=== PATIENT | female | born 1985 | race Caucasian/White ===

== ENCOUNTER 2016-10-11 08:41 | Emergency (ER) | payer MEDICAID ==
[~2016-10-11] VITALS: Ht 172.7 cm; Wt 131.5 kg
[~2016-10-11 08:41] MED LIST: ATIVAN2 MG PO; BENADRYL 50MG C50 MG PO; BENTYL10 MG PO; BIRTH CONTROL PO; BUPROPION HCL75 M1 PO; CIPRO 500MG TA500 MG PO; CITALOPRAM HYDR20 MG PO; CORTISPORIN (GE10 M1 OT; CYCLOBENZ5 MG PO; CYCLOBENZAPRINE10 M1 PO; EC NAPROSYN375 MG PO; FLEXERIL10 MG PO; FLONASE 50 MCG16 GM; GABAPENTIN100 MG PO; HYDROXYZINE PAM25 MG PO; IBUPROFEN600 MG; IRON TABLETS325 M1 PO; IRON TABLETS325 MG PO; KEFLEX 500MG.500 MG PO; LORTAB 5/3251 TAB PO; MACROBID 100MG100 MG PO; MEDROL 4MG. DOSE4 MG PO; METHYLDOPA250 MG PO; MOTRIN400 MG PO; MOTRIN600 M1 PO; PEPCID40 MG PO; PERCOCET 325 MG1 TA4 PO; PERCOCET 5/3251 EACH PO; PHENERGAN 25MG.25 M1 PO; PHENTERMINE H37.5 M1 PO; PREDNISONE 10MG10 MG PO; PRENATAL PLUS1 TA1; PRENATAL PLUS1 TA1 PO; PYRIDIUM 200MG200 MG PO; ROBAXIN-750750 MG PO; SPRINTEC 35 MCG1 TAB PO; TORADOL10 M2 PO; TORADOL10 MG PO; TRAMADOL 50MG T50 MG PO; TRAMADOL50 M1 PO; TRAZODONE50 MG PO; TYLENOL 325MG325 MG PO; TYLENOL ES500 M1 PO; TYLENOL PM 5001 CAP PO; TYLENOL PM1 CAP PO; ULTRAM50 MG PO; VENLAFAXINE50 MG PO; VISTARIL25 MG PO; ZESTRIL10 MG NG; ZITHROMAX Z PA250 MG PO; ZOFRAN ODT4 MG PO; ZOFRAN ODT8 M1 PO; ZOFRAN ODT8 MG PO; ZOLOFT 50MG TAB50 MG PO; ZOLOFT100 MG PO; ZYRTEC ALLERGY10 MG PO
--- NOTE | 2016-10-11 08:59 | Emergency Room Report ---
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 N Clinical Suspician of Infection? N Mental Status: 1 - Regular (Normal Baseline) Sepsis Risk:Low Sepsis Risk Have you (or family members/close friends) recently traveled outside the [place]? N If Yes, where/when: Have you had exposure to infectious disease within the past month? N TB? Other? Specify: Patient states she fell several days ago and hurt her low back and her RIGHT hip and then she went to see a Fracture yesterday and got "adjusted" she states that today she is having worse pain in her low back and her RIGHT hip area moderate and achy worse with movement and radiates from her low back into her hip area on the RIGHT. No complain of any head trauma or loss of consciousness she states she tripped and fell ALLERGIES Coded Allergies: Penicillins (02/05/16) SHELLFISH (FOOD) (I-HIVES 02/05/16) Sulfa (Sulfonamide Antibiotics) (02/05/16) aspirin (02/05/16) labetalol (02/05/16) naproxen (02/05/16) triamcinolone (02/05/16) Home Medications Active Scripts Cyclobenzaprine Hcl (Flexeril) 10 MG PO BID #20 TAB Prov: 08/21/16 Dicyclomine Hcl (Bentyl 10MG) 10 MG PO Q6HP PRN abdominal cramps #30 CAP Prov: 09/01/16 Ondansetron (Zofran 4MG Odt) 4 MG PO Q6HP PRN NAUSEA AND VOMITING #10 ODT Prov: 09/02/16 HYDROCODONE/ACETAMINOPHEN (Lortab 5-325 MG Tablet) 1 TAB PO TIDP PRN BREAKTHROUGH MOD TO SEV PAIN #10 TAB Prov: 09/02/16 Famotidine (Pepcid) 40 MG PO DAILY #20 TAB Prov: 08/09/16 Lisinopril (Zestril) 10 MG NG DAILY #30 TAB Prov: 11/29/15 Fluticasone Propionate (Flonase 50 Mcg Nasal [place]) 2 SPRAY NA DAILY #1 BOT Prov: 09/10/16 Naproxen (EC-Naprosyn) 375 MG PO BID #14 ECT Prov: 09/12/16 Cyclobenzaprine Hcl (Cyclobenzaprine) 5 MG PO QHSP PRN muscle spasm #5 TAB Prov: 09/12/16 Reported Medications Hydroxyzine Pamoate 25 MG PO QHS #90 NORGESTIMATE-ETHINYL ESTRADIOL (Sprintec 28 Day Tablet) 1 TAB PO QHS Gabapentin (Gabapentin 100MG) 100 MG PO QHS #30 Sertraline Hcl (Zoloft 50MG) 100 MG PO DAILY Trazodone Hcl (Trazodone HCl) 300 MG PO NIGHTLY #8 History Medical History General CAD? No Angina: No SC: No Hypertension? Yes Hyperlipidemia? No CHF? No DVT? No PE? No COPD? No Asthma? Yes Anemia? No GERD? No Gastric ulcers? No GI Bleed? No Hernia? No Thyroid Problems? No Hypothyroidism? No CVA? No Seizures? No Diabetes? No Insulin Dependent: No Insulin Pump: No Home FSBS? No Renal Insuffiency? No End Stage Renal Disease? No UTI? Yes Stones? Yes BPH? No GB Disease: No Nephritic Syndrome? No Asplenia? No Hepatitis? No Sickle Cell Disease? No Arthritis? Yes Migraines? No Cataracts? No Glaucoma? No MRSA? No HIV? No TB? No Anxiety? Yes Depression? Yes Cancer? No More? 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 Eyes: conjunctiva/corneas clear ENT: Mucous membranes moist. Neck: No jugular venous distention. Extremities: no edema Musculoskeletal: low back tenderness RIGHT hip tenderness Skin: No rashes or lesions to exposed skin. Neurologic: Alert. No gross focal deficits Psychiatric: Normal affect (Kiya DERAS, Sukhdeep) General Appearance normal appearance Respiratory Status No: respiratory distress. Cardiovascular no JVD Neurologic alert, no urinary or bowel incontinence Medical Decision Making LABS/Meds/Orders Pt receiving controlled substance in ED? Yes Results/Orders Orders Procedure Date/time Status HIP RT 2-3V W/PELVIS IF PERFOR 10/11 899 Active URINALYSIS/COMPLETE 10/11 899 Active URINE 10/11 899 Active XRAY/CT/US XRAY/CT/US XRAY hip, L-spine XR interpretation by reviewed by me Xray Results no fracture seen, no fracture in hip , no fracture in l spine Departure Departure Time of Disposition 0934 Disposition DC Home or Self Care(routine) Clinical Impression Primary Impression: Lumbar sprain Qualifiers: Encounter type: initial encounter Qualified Code: S33.5XXA - Sprain of ligaments of lumbar spine, initial encounter Condition STABLE Referrals Quinton DERAS,Bert Moon (Family) Patient Instructions CONTROLLED SUBSTANCE-[facility], Low Back Pain Discharge Counseling Counseled pt/family regarding diagnosis, test results, R/B of controlled subst. Prescriptions Current Visit Scripts Acetaminophen/Hydrocodone Bi (Vicodin) 1 TAB PO Q6HP PRN BACK PAIN #10 TAB ED Critical Care Critical Care No at 0942
--- NOTE | 2016-10-11 09:36 | RADIOLOGY REPORT PS360 ---
EXAM: LUMBAR SPINE 5 VIEWS HISTORY: Back pain following injury fall back pain ORDERING PHYSICIAN: Sukhdeep Huertas MD PATIENT AGE: 31 years COMPARISON: None FINDINGS: Normal alignment. No fracture or dislocation. No lytic or blastic change. No significant degenerative change. The disc spaces are preserved. IMPRESSION: No acute finding, negative lumbar spine
[2016-10-11] MEDS ORDERED: VICODIN 5/500 T1 TAB PO (09:40)
[2016-10-11 09:51] VITALS: BP 112/45
--- NOTE | 2016-10-11 09:59 | RADIOLOGY REPORT PS360 ---
HIP RT 2-3V W/PELVIS IF PERFOR HISTORY: Extreme hip pain ORDERING PHYSICIAN: Sukhdeep Huertas MD PATIENT AGE: 31 years COMPARISON: CT scan of 09/02/2016 FINDINGS: No fracture or dislocation. No lytic changes evident. There is sclerosis of the symphysis pubis with some minimal subcortical lucencies of the symphysis consistent with osteitis pubis. The right hip has an unremarkable appearance. IMPRESSION: 1. Negative right hip. 2. Osteitis pubis
== END 2016-10-11 09:52 | disposition home or self-care (01) ==
LOC: ER 08:41
DX: S33.5XXA Sprain of ligaments of lumbar spine, initial encounter (principal); I10 Essential (primary) hypertension

== ENCOUNTER 2017-03-18 14:43 | Emergency (ER) | payer MEDICAID ==
[~2017-03-18] VITALS: Ht 172.7 cm; Wt 97.5 kg
--- NOTE | 2017-03-18 15:20 | Urgent Treatment Center Report ---
History of Present Issue Date/Time Seen by Provider 03/18/17 1520 Visit Reason Pt arrived:Walked Presenting Problem:BILATERAL EAR PAIN AND CONGESTION Location if Accident: Onset of symptoms date/time:/ or onset unknown for:MEDICAL HX UNKNOWN Have you (or family members/close friends) recently traveled outside the [place]? N If Yes, where/when: Have you had exposure to infectious disease within the past month? TB? Other? Specify: Patient state that she has been having bilateral ear pain and cough and congestion State that she has not been feeling well States that she feels like she has pressure behind her ears and in her sinuses states that she was blowing clear mucous out of her sinuses and now it is yellowish green ALLERGIES Coded Allergies: Penicillins (02/05/16) SHELLFISH (FOOD) (I-HIVES 02/05/16) Sulfa (Sulfonamide Antibiotics) (02/05/16) aspirin (02/05/16) iodine (12/19/16) labetalol (02/05/16) triamcinolone (02/05/16) Home Medications Active Scripts NITROFURANTOIN MONOHYD/M-CRYST (Macrobid 100 MG Capsule) 100 MG PO BID #14 CAP Prov: 12/09/16 Famotidine (Pepcid) 40 MG PO DAILY #20 TAB Prov: 08/09/16 Lisinopril (Zestril) 10 MG NG DAILY #30 TAB Prov: 11/29/15 Fluticasone Propionate (Flonase 50 Mcg Nasal [place]) 2 SPRAY NA DAILY #1 BOT Prov: 09/10/16 Reported Medications Hydroxyzine Pamoate 25 MG PO QHS #90 NORGESTIMATE-ETHINYL ESTRADIOL (Sprintec 28 Day Tablet) 1 TAB PO QHS Gabapentin (Gabapentin 100MG) 100 MG PO QHS #30 Bisoprolol Fumarate 10 MG PO QHS #30 Sertraline Hcl (Zoloft 50MG) 100 MG PO DAILY Trazodone Hcl (Trazodone HCl) 300 MG PO NIGHTLY #8 BUPROPION HCL SR (Wellbutrin SR 100MG) 100 MG PO BID History Medical History General CAD? No Angina: No PA: No Hypertension? Yes Hyperlipidemia? No CHF? No DVT? No PE? No COPD? No Asthma? Yes Anemia? No GERD? No Gastric ulcers? No GI Bleed? No Hernia? No Thyroid Problems? No Hypothyroidism? No CVA? No Seizures? No Diabetes? No Insulin Dependent: No Insulin Pump: No Home FSBS? No Renal Insuffiency? No UTI? Yes Stones? Yes BPH? No GB Disease: No Nephritic Syndrome? No Asplenia? No Hepatitis? No Sickle Cell Disease? No Arthritis? Yes Migraines? No Cataracts? No Glaucoma? No MRSA? No HIV? No TB? No Anxiety? Yes Depression? Yes Cancer? No More? 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 Respiratory cough Physical Exam Vital Signs Vital Signs Date Time Temp Pulse Resp B/P Pulse O2 O2 Flow FiO2 Ox Delivery Rate 03/18 1533 98.3 64 18 99/66 95 03/18 1458 98.3 64 18 99/66 95 General Appearance normal appearance, WD/WN, no apparent distress Ear, Nose, Throat sinus pain/drainage, nasal congestion, throat red, irritated, drainage noted, tenderness noted maxillary sinsues Respiratory Status Yes: trachea midline, chest symmetrical, non tender chest. No: respiratory distress. Cardiovascular normal exam, regular rate/rhythm, no peripheral edema, no gallop Neurologic alert, continuous improvement analyst II-XII nml as tested, normal exam, no motor/sensory deficits, oriented x 3 Medical Decision Making LABS/Meds/Orders Pt receiving controlled substance in ED? No Departure Departure Time of Disposition 1553 Disposition DC Home or Self Care(routine) Clinical Impression Primary Impression: Upper respiratory infection Qualifiers: URI type: unspecified URI Qualified Code: J06.9 - Acute upper respiratory infection, unspecified Condition STABLE Patient Instructions Cough, DI for Nasal Congestion, Sore Throat Additional Instructions * Monitor Temp. Tylenol and/or Ibuprofen as needed. ER if fever is no less than 101 despite alternating Tylenol and Ibuprofen * Encourage fluids, water, Gatorade, powerade, pedialyte if /toddler/or child * Warm salt water gargles for throat irritation *Warm fluids *Sore throat lozenges *Sleep elevated Discharge Counseling Counseled pt/family regarding diagnosis, medications/RX, home care, follow up needs Prescriptions Current Visit Scripts Azithromycin (Zithromycin (Z-DAYNA) 250MG Tab) 250 MG PO DAILY #6 TAB TAKE TWO (2) TABLETS ON DAY 1, THEN ONE (1) TABLET DAY #2 THRU #5 D-METHORPHAN HB/P-EPD HCL/BPM (Bromfed Dm Cough Syrup) 10 ML PO Q4HP PRN cough #120 SYR at 1553
[2017-03-18 15:33] VITALS: BP 99/66
== END 2017-03-18 15:58 | disposition home or self-care (01) ==
LOC: UTC 14:43
DX: J06.9 Acute upper respiratory infection, unspecified (principal); F32.9 Major depressive disorder, single episode, unspecified; F41.9 Anxiety disorder, unspecified; M19.90 Unspecified osteoarthritis, unspecified site; I10 Essential (primary) hypertension; Z79.3 Long term (current) use of hormonal contraceptives; Z79.899 Other long term (current) drug therapy

== ENCOUNTER → 2017-05-12 | Emergency (ER) | payer MEDICAID ==
[~2017-05-12] VITALS: Ht 172.7 cm; Wt 133.8 kg
[~2017-05-12] MED LIST changes: +BISOPROLOL FUMA10 MG PO; +BROMFED DM COU118 ML PO; +MACROBID100 M3 PO; +OMNICEF 300 MG300 MG PO; +PERCOGESIC1 TAB PO; +VICODIN 5/500 T1 TAB PO; +WELLBUTRIN SR100 MG PO; +ZANAFLEX4 MG NG
--- OUTSIDE RECORDS SUMMARY | 2017-05-12 15:48 | External Medical Summary Rpt | CCD ---
Author Author , ASIM DAILEY Address Unknown Phone [email or web address] Care Team Providers Care Conduit Cleaner Name Role Phone Siddhartha Luz III, MD, Siddhartha Wild III, MD Purpose Continuity of Care Document - 10-01-2011 through 2016 Problems Code Diagnosis DOS Provider Status F41.9 ANXIETY 11-07-2016 DISORDER, UNSPECIFIED G89.29 OTHER 11-07-2016 CHRONIC PAIN I10 ESSENTIAL 11-07-2016 (PRIMARY) HYPERTENS N M54.5 LOW BACK 11-07-2016 PAIN Z88.0 ALLERGY 11-07-2016 STATUS TO PENICILLIN Z88.2 ALLERGY 11-07-2016 STATUS TO SULFONAMIDE S STATUS Z88.6 ALLERGY 11-07-2016 STATUS TO ANALGESIC AGENT STATUS Z88.8 ALLERGY 11-07-2016 STATUS TO OTHER DRUGS, MEDICAMENTS AND BIOLOGICAL SUBSTANCES STATUS Z91.013 ALLERGY TO 11-07-2016 [facility] 401.9 401.9 [facility]-13-2013 [facility] N NOS Hospital 493.90 493.90 01-13-2013 [place] ASTHMA, [facility] UNSPECIFIED Hospital 787.01 787.01 01-13-2013 [place] NAUSEA WITH [facility] VOMITING Hospital 787.91 787.91 01-13-2013 [place] DIARRHEA [facility] 789.00 789.00 01-13-2013 [place] ABDOMINAL [facility] PAIN, Hospital UNSPECIFIED SITE V58.69 V58.69 OTH 01-13-2013 [facility] ENT USE Hospital I88.0 NONSPECIFIC MESENTERIC LYMPHADENIT IS K52.9 NONINFECTIV E GASTROENTER ITIS AND COLITIS, UNSPECIFIED R10.32 LEFT LOWER QUADRANT PAIN R10.9 UNSPECIFIED ABDOMINAL PAIN S29.019A STRAIN OF MUSCLE AND TENDON OF UNSP WALL OF THORAX, INIT S33.5XXA SPRAIN OF LIGAMENTS OF LUMBAR SPINE, INITIAL ENCOUNTER S39.012A STRAIN OF MUSCLE, FASCIA AND TENDON OF LOWER BACK, INIT Allergies, Adverse Reactions, Alerts Type Drug Allergy Food Allergy Adverse Reaction to Substance Substance Reaction Severity Penicillin Unknown Unknown SULFA (sulfonamide) Unknown Unknown Aspirin Unknown Unknown Naproxen Unknown Unknown Penicillin V Unknown Unknown Trimethoprim Unknown Unknown Sulfamethoxazole Unknown Unknown SHELLFISH (FOOD) I-HIVES Unknown Medications Na ND Rx Da Fi Fi Am Da Di Ph RX Ph St me C No te ll ll ou ys ag ar # ys at rm s nt no ma ic us Or Da si cy ia de te s n re d SO 00 07 0 No DI 40 -1 UM 97 7- Lo 98 20 ng CH 30 13 er LO 9 RI Ac DE ti ve 0. 9% SO MAXIMINO TI ON Sa 63 07 0 No li 80 -1 ne 70 7- Lo 10 20 ng Fl 07 13 er us 5 h Ac 10 ti ML ve Sy ri ng e ON 00 07 0 No DA 64 -1 NS 16 7- Lo ET 08 20 ng RO 02 13 er N 5 HC Ac L ti 4 ve MG /2 ML AL [place] 00 07 0 No OM 64 -1 ET 11 7- Lo ADAME 49 20 ng ZI 53 13 er NE 5 Ac 25 ti ve MG /M L AM PU L AC 51 07 0 No ET 07 -1 AM 90 2- Lo IN 16 20 ng OP 19 13 er HE 9H N Ac W/ ti CO ve DE IN E #3 TA K Vital Signs 01-13-2013 15:46 Name Value Interpretat Reference Comment ion Range BP 57 mm[Hg] Diastolic BP Systolic 115 mm[Hg] Heart 69 /min Rate/Pulse O2% 98 % Respiratory 16 /min Rate 01-13-2013 12:31 Name Value Interpretat Reference Comment ion Range Body 98.5 [degF] Temperature BP 101 mm[Hg] Diastolic BP Systolic 138 mm[Hg] Heart 75 /min Rate/Pulse O2% 98 % Respiratory 20 /min Rate Weight 0 [oz_av] Measured Weight 97.524 kg Measured 01-08-2013 20:44 Name Value Interpretat Reference Comment ion Range BP 75 mm[Hg] Diastolic BP Systolic 142 mm[Hg] Heart 72 /min Rate/Pulse O2% 97 % Respiratory 20 /min Rate 01-08-2013 20:00 Name Value Interpretat Reference Comment ion Range BP 79 mm[Hg] Diastolic BP Systolic 137 mm[Hg] Heart 84 /min Rate/Pulse O2% 97 % Respiratory 20 /min Rate Results Labs Lab Lab Date Result Refere Interp Status Commen Order Detail nces retati t Range on Urinalysis macro (dipstick) panel in Urine (12-09-2016 10:57) Appeara Cloudy CLEAR complet nce of 017 ed Urine 10:57 Bilirub NEGATIV NEG complet in 017 E ed [Presen 10:57 ce] in Urine by Test strip Erythro TRACE NEG Abnorma complet cytes 017 l ed [Presen 10:57 ce] in Urine Color YELLOW YELLOW complet of 017 ed Urine 10:57 Ketones NEGATIV NEG complet 017 E ed [Presen 10:57 ce] in Urine by Automat ed test strip Leukocy MODERAT NEG complet te 017 E ed esteras 10:57 e [Presen ce] in Urine by Automat ed test strip Nitrite NEGATIV NEG complet 017 E ed [Presen 10:57 ce] in Urine by Test strip Urobili 0.2 NEG complet nogen 017 ed [Presen 10:57 ce] in Urine by Test strip COMPREHENSIVE METABOLIC PANEL (01-13-2013 12:50) Glucose 94 74-106 complet 013 mg/dL ed Bld-mCn 12:50 c BUN 12 7-18 complet Bld-mCn 013 mg/dL ed c 12:50 Creat 1.0 0.6-1.0 complet SerPl-m 013 mg/dL ed Cnc 12:50 ESTIMAT 128 50-200 complet ED 013 ML/MIN ed CREATIN 12:50 INE CLEARAN CE GFR 66 59- complet (ESTIMA 013 ML/MIN ed BERNARDO) 12:50 Sodium 138 136-145 complet SerPl-s 013 mmoL/L ed Cnc 12:50 Potassi 3.7 3.5-5.1 complet um 013 mmoL/L ed SerPl-s 12:50 Cnc Chlorid 101 98-107 complet e 013 mmoL/L ed SerPl-s 12:50 Cnc CO2 07-17-2 27 21.0-32 complet SerPl-s 013 mmoL/L .0 ed Cnc 12:50 Calcium 07-17-2 9.5 8.5-10. complet 013 mg/dL 1 ed SerPl-m 12:50 Cnc Prot 07-17-2 8.0 6.4-8.2 complet SerPl-m 013 gm/dL ed Cnc 12:50 Albumin 07-17-2 4.0 3.4-5.0 complet 013 gm/dL ed SerPl-m 12:50 Cnc Globuli 07-17-2 4.0 1.3-3.2 complet n 013 gm/dL ed Ser-mCn 12:50 c Albumin 07-17-2 1.0 UNK 1.1-1.8 complet /Glob 013 ed SerPl-m 12:50 Rto Bilirub 07-17-2 0.4 0.2-1.0 complet 013 mg/dL ed SerPl-m 12:50 Cnc AST 07-17-2 33 U/L 15-37 complet SerPl-c 013 ed Cnc 12:50 ALT 07-17-2 83 U/L 30-65 complet SerPl-c 013 ed Cnc 12:50 ALP 07-17-2 90 U/L 50-136 complet SerPl-c 013 ed Cnc 12:50 CBC with AUTO DIFF (01-13-2013 12:50) WBC # 07-17-2 9.0 4.8-10. complet Bld 013 K/MM3 8 ed Auto 12:50 RBC # 07-17-2 5.37 4.2-5.4 complet Bld 013 M/mm3 ed Auto 12:50 Hgb 07-17-2 14.3 12.2-16 complet Bld-mCn 013 g/dL .2 ed c 12:50 Hct Fr 07-17-2 43.7 % 37.0-47 complet Bld 013 .0 ed 12:50 MCV RBC 07-17-2 81.5 fl 82.2-97 complet 013 .8 ed 12:50 MCH RBC 07-17-2 26.6 pg 27-31.2 complet Qn 013 ed Auto 12:50 MEAN 07-17-2 32.7 31.8-35 complet CORPUSC 013 g/dl .4 ed ULAR 12:50 HGB CONC RDW RBC 07-17-2 13.9 % 11.5-17 complet Auto 013 .5 ed 12:50 Platele 07-17-2 438 142-424 complet t Bld 013 K/mm3 ed Ql 12:50 Manual MEAN 07-17-2 6.7 fl 7.4-10. complet PLATELE 013 4 ed T 12:50 VOLUME Granulo 07-17-2 65.0 % 37.0-80 complet cytes 013 .0 ed Fr Bld 12:50 Auto LYMPH % 07-17-2 30.2 % 10-50.0 complet 013 ed 12:50 Monocyt 07-17-2 2.9 % 1.7-9.3 complet es Fr 013 ed Bld 12:50 Auto Eosinop 07-17-2 1.2 % 0.1-12. complet hil Fr 013 0 ed Bld 12:50 Auto Basophi 07-17-2 0.7 % 0.1-2.0 complet ls Fr 013 ed Bld 12:50 Auto Granulo 07-17-2 5.8 1.8-7.8 complet cytes # 013 K/mm3 ed Bld 12:50 Auto Lymphoc 07-17-2 2.7 0.7-4.5 complet ytes Fr 013 K/mm3 ed Bld 12:50 Auto Monocyt 07-17-2 0.3 0.1-1.0 complet es # 013 K/mm3 ed Bld 12:50 Auto Eosinop 07-17-2 0.1 0.0-0.4 complet hil # 013 K/mm3 ed Bld 12:50 Auto Basophi 07-17-2 0.1 0-0.2 complet ls # 013 K/MM3 ed Bld 12:50 Auto B-HCG Ur Ql (01-13-2013 12:45) B-HCG 07-17-2 NEGATIV NEG complet Ur Ql 013 E ed 12:45 URINALYSIS/COMPLETE (01-13-2013 12:45) URINE 07-17-2 YELLOW YELLOW complet COLOR 013 ed 12:45 URINE 07-17-2 SL CLEAR complet APPEARA 013 CLOUDY ed NCE 12:45 URINE 07-17-2 NEGATIV NEG complet GLUCOSE 013 E ed - 12:45 DIPSTIC K URINE 07-17-2 NEGATIV NEG complet BILIRUB 013 E ed IN - 12:45 DIPSTIC K URINE 07-17-2 NEGATIV NEG complet KETONE 013 E mg/dL ed 12:45 URINE 07-17-2 1.025 1.005-1 complet SPECIFI 013 UNK .030 ed C 12:45 GRAVITY URINE 07-17-2 NEGATIV NEG complet BLOOD 013 E ed 12:45 URINE 07-17-2 6.0 UNK 5.0-8.5 complet PH 013 ed 12:45 URINE 07-17-2 NEGATIV NEG complet PROTEIN 013 E mg/dL ed - 12:45 DIPSTIC K URINE 07-17-2 0.2 NEG complet UROBILI 013 E.U./dL ed NOGEN - 12:45 DIPSTIC K URINE 07-17-2 NEGATIV NEG complet NITRATE 013 E ed - 12:45 DIPSTIC K URINE 07-17-2 TRACE NEG complet LEUK 013 ed ESTERAS 12:45 E URINE 07-17-2 3-5 0 complet RBC 013 rbc/hpf ed 12:45 URINE 07-17-2 3-5 O complet WBC 013 wbc/hpf ed 12:45 URINE 07-17-2 20-50 0-5 complet SQUAMOU 013 #/hpf ed S CELLS 12:45 URINE 07-17-2 2+ O complet BACTERI 013 ed A 12:45 CHLAMYDIA AND GONORRHEA TESTING (04-29-2012 15:30) Chlamyd NEGATIV complet ia 012 E ed trachom 15:30 atis rRNA [Presen ce] in Unspeci fied specime n by Probe & target amplifi cation method Neisser NEGATIV complet ia 012 E ed gonorrh 15:30 oeae rRNA [Presen ce] in Unspeci fied specime n by Probe & target amplifi cation method Treponema pallidum IgG Ab [Presence] in Serum by Immunoassay (04-29-2012 15:30) Trepone NON-PHYLLIS complet ma 012 CTIVE ed pallidu 15:30 m IgG Ab [Presen ce] in Serum by Immunoa ssay Treponema pallidum IgG Ab [Presence] in Serum by Immunoassay (04-29-2012 15:30) COLLECT NA complet OR 012 ed 15:30 ETHNICI 10-31-2 WHITE complet TY 012 ed 15:30 PURPOSE DIAGNOS complet OF 012 TIC ed EXAM 15:30 SPECIME BLOOD complet N 012 ed SOURCE 15:30 CHART NA complet NUMBER 012 ed 15:30 Trepone Pending complet ma 012 ed pallidu 15:30 m IgG Ab [Presen ce] in Serum by Immunoa ssay CHLAMYDIA AND GONORRHEA TESTING (04-29-2012 15:30) COLLECT NA complet OR 012 ed 15:30 ETHNICI WHITE, complet TY 012 NON-HIS ed 15:30 PANIC KIT 10-27-12 complet EXPIRAT 012 ed ION 15:30 DATE SYMPTOM NO complet S 012 ed 15:30 REASON VOLUNTE complet FOR 012 ER/MEDI ed REQUEST 15:30 OLLIE PROBLEM SPECIME FEMALE complet N 012 ENDOCER ed SOURCE 15:30 VICAL PREGNAN NO complet T 012 ed 15:30 CHART NA complet NUMBER 012 ed 15:30 Chlamyd Pending complet ia 012 ed trachom 15:30 atis rRNA [Presen ce] in Unspeci fied specime n by Probe & target amplifi cation method Neisser Pending complet ia 012 ed gonorrh 15:30 oeae rRNA [Presen ce] in Unspeci fied specime n by Probe & target amplifi cation method CHLAMYDIA AND GONORRHEA TESTING (10-01-2011 14:58) Chlamyd NEGATIV complet ia 012 E ed trachom 14:58 atis rRNA [Presen ce] in Unspeci fied specime n by Probe & target amplifi cation method Neisser NEGATIV complet ia 012 E ed gonorrh 14:58 oeae rRNA [Presen ce] in Unspeci fied specime n by Probe & target amplifi cation method CHLAMYDIA AND GONORRHEA TESTING (10-01-2011 14:58) COLLECT NA complet OR 012 ed 14:58 ETHNICI WHITE, complet TY 012 NON-HIS ed 14:58 PANIC KIT 01-28-12 complet EXPIRAT 012 ed ION 14:58 DATE SYMPTOM NO complet S 012 ed 14:58 REASON REVISIT complet FOR 012 /ANNUAL ed REQUEST 14:58 FAMILY PLANNIN G VISIT SPECIME FEMALE complet N 012 ENDOCER ed SOURCE 14:58 VICAL PREGNAN NO complet T 012 ed 14:58 CHART NA complet NUMBER 012 ed 14:58 Chlamyd Pending complet ia 012 ed trachom 14:58 atis rRNA [Presen ce] in Unspeci fied specime n by Probe & target amplifi cation method Neisser Pending complet ia 012 ed gonorrh 14:58 oeae rRNA [Presen ce] in Unspeci fied specime n by Probe & target amplifi cation method Encounters Encounter Start End Date Code Location Performer Type Date Emergency RAMSES Wild (ER) 3 12:52 3 16:01 [facility] Siddhartha E. Emergency RAMSES Alcantara MD (ER) 3 20:07 3 20:45 [facility]
--- OUTSIDE RECORDS SUMMARY | 2017-05-12 15:48 | External Medical Summary Rpt | CCD ---
Author Author , ASIM DAILEY Address Unknown Phone [email or web address] Care Team Providers Care Spa Consultant Name Role Phone Siddhartha Luz III, MD, [...] 11-07-2016 [facility] 401.9 401.9 [facility] 493.90 493.90 01-13-2013 [place] ASTHMA, [facility] UNSPECIFIED Hospital 787.01 787.01 01-13-2013 [place] NAUSEA WITH [facility] VOMITING Hospital 787.91 787.91 01-13-2013 [place] DIARRHEA [facility] 789.00 789.00 01-13-2013 [place] ABDOMINAL [facility] PAIN, Hospital UNSPECIFIED SITE V58.69 V58.69 OTH 01-13-2013 [facility] ENT USE Hospital I88.0 NONSPECIFIC MESENTERIC LYMPHADENIT [...] ti 4 ve MG /2 ML AL NV 00 07 0 No OM 64 -1 [...] RAMSES Wild (ER) 3 12:52 3 16:01 [facility] Siddhartha E. Emergency RAMSES Alcantara MD (ER) 3 20:07 3 20:45 [facility]
--- OUTSIDE RECORDS SUMMARY | 2017-05-12 15:49 | External Medical Summary Rpt | CCD ---
Author Author , ASIM DAILEY Address Unknown Phone .SideStep Immunization Name Date Rout CVX Reac Dose Comm Prov Is Faci e tion ent ider Refu lity Give sed n PPV2 09-2 33 0.5 Hist [facility] No [facility] 3 0-20 mL oric OSMAR AID0 16 al AYMA 3938 Info N rmat ion - Sour ce Unsp ecif ied Infl 09-2 Intr 150 0.5 Hist [facility] No [facility] uenz 0-20 amus mL oric OSMAR AID0 a 16 cula al AYMA 3938 Quad r Info N Inj rmat ion - Sour ce Unsp ecif ied Tdap 08-2 Intr 115 999 Hist H149 No H149 , 8-20 amus oric Adso 12 cula al rbed r Info rmat ion - Sour ce Unsp ecif ied
--- OUTSIDE RECORDS SUMMARY | 2017-05-12 15:49 | External Medical Summary Rpt | CCD ---
Author Author , ASIM DAILEY Address Unknown Phone [email or web address] Immunization Name Date Rout CVX Reac Dose [...]
--- OUTSIDE RECORDS SUMMARY | 2017-05-12 15:49 | External Medical Summary Rpt ---
Author Author [employer] [facility], [employer] Organization [employer] Address Unknown Phone Unavailable Results Urinalysis macro (dipstick) panel in Urine Observa Value Referen Units Interpr Notes Date tion ce etation Range Appeara Cloudy CLEAR No No No Dec 09 nce of informa informa informa 2017 Urine tion in tion in tion in 10:57 source source source AM data data data Bilirub NEGATIV NEG No No No Dec 09 in E informa informa informa 2017 [Presen tion in tion in tion in 10:57 ce] in source source source AM Urine data data data by Test strip Erythro TRACE NEG No Abnorma No Dec 09 cytes informa l informa 2016 [Presen tion in tion in 10:57 ce] in source source AM Urine data data Color YELLOW YELLOW No No No Dec 09 of informa informa informa 2017 Urine tion in tion in tion in 10:57 source source source AM data data data Glucose NEG No No No Dec 09 [Mass/vol informati informati informati 2017 ume] in on in on in on in 10:57 AM Urine by source source source Test data data data strip Ketones NEGATIV NEG mg/dL No No Dec 09 E informa informa 2016 [Presen tion in tion in 10:57 ce] in source source AM Urine data data by Automat ed test strip pH of 5.0 - 8.5 No Normal No Nov 12 Urine informati informati 2017 on in on in 10:57 AM source source data data Protein NEG mg/dL No No Dec 09 [Mass/vol informati informati 2017 ume] in on in on in 10:57 AM Urine by source source Automated data data test strip Specific 1.005 - No Normal No Dec 09 gravity 1.030 informati informati 2017 of Urine on in on in 10:57 AM source source data data Leukocy MODERAT NEG No No No Dec 09 te E informa informa informa 2017 esteras tion in tion in tion in 10:57 e source source source AM [Presen data data data ce] in Urine by Automat ed test strip Nitrite NEGATIV NEG No No No Dec 09 E informa informa informa 2016 [Presen tion in tion in tion in 10:57 ce] in source source source AM Urine data data data by Test strip Urobili 0.2 NEG E.U./dL No No Dec 09 nogen informa informa 2016 [Presen tion in tion in 10:57 ce] in source source AM Urine data data by Test strip CHLAMYDIA AND GONORRHEA TESTING Observa Value Referen Units Interpr Notes Date tion ce etation Range COLLECT NA No No No No Apr 29 OR informa informa informa informa 2012 tion in tion in tion in tion in 3:30 PM source source source source data data data data ETHNICI WHITE, No No No No Apr 29 TY NON-HIS informa informa informa informa 2012 PANIC tion in tion in tion in tion in 3:30 PM source source source source data data data data KIT 10-27-12 No No No No Apr 29 EXPIRAT informa informa informa informa 2012 ION tion in tion in tion in tion in 3:30 PM DATE source source source source data data data data SYMPTOM NO No No No No Apr 29 S informa informa informa informa 2012 tion in tion in tion in tion in 3:30 PM source source source source data data data data REASON VOLUNTE No No No No Apr 29 FOR ER/MEDI informa informa informa informa 2012 REQUEST OLLIE tion in tion in tion in tion in 3:30 PM PROBLEM source source source source data data data data SPECIME FEMALE No No No No Apr 29 N ENDOCER informa informa informa informa 2012 SOURCE VICAL tion in tion in tion in tion in 3:30 PM source source source source data data data data PREGNAN NO No No No No Apr 29 T informa informa informa informa 2012 tion in tion in tion in tion in 3:30 PM source source source source data data data data CHART NA No No No No Apr 29 NUMBER informa informa informa informa 2012 tion in tion in tion in tion in 3:30 PM source source source source data data data data Chlamyd NEGATIV No No No NEGATIV Apr 29 ia E informa informa informa E 2012 trachom tion in tion in tion in RESULT= 3:30 PM atis source source source WITHIN rRNA data data data NORMAL [Presen ce] in LIMITSP Unspeci OSITIVE fied specime RESULT= n by Probe & ABNORMA target LEQUIVO OLLIE amplifi RESULT= cation method INDETER MINATEU NSATISF ACTORY RESULT= INVALID Neisser NEGATIV No No No NEGATIV Apr 29 ia E informa informa informa E 2012 gonorrh tion in tion in tion in RESULT= 3:30 PM oeae source source source WITHIN rRNA data data data NORMAL [Presen ce] in LIMITSP Unspeci OSITIVE fied specime RESULT= n by Probe & ABNORMA target LEQUIVO OLLIE amplifi RESULT= cation method INDETER MINATEU NSATISF ACTORY RESULT= INVALID THE APTIMA COMBO 2 ASSAY IS NOT INTENDE D FOR THE EVALUAT ION OF SUSPECT EDSEXUA L ABUSE OR FOR OTHER MEDICO- LEGAL INDICAT IONS. FOR THOSE PATIENT S FORWHOM A FALSE POSITIV E RESULT MAY HAVE ADVERSE PSYCHO- SOCIAL IMPACT, [facility].\.br \This report contain s patient informa tion that must be protect ed in accorda nce with the Health Insuran ce Portabi lity and Account ability Act. Treponema pallidum IgG Ab [Presence] in Serum by Immunoassay Observa Value Referen Units Interpr Notes Date tion ce etation Range COLLECT NA No No No No Apr 29 OR informa informa informa informa 2012 tion in tion in tion in tion in 3:30 PM source source source source data data data data ETHNICI WHITE No No No No Apr 29 TY informa informa informa informa 2012 tion in tion in tion in tion in 3:30 PM source source source source data data data data PURPOSE DIAGNOS No No No No Apr 29 OF TIC informa informa informa informa 2012 EXAM tion in tion in tion in tion in 3:30 PM source source source source data data data data SPECIME BLOOD No No No No Apr 29 N informa informa informa informa 2012 SOURCE tion in tion in tion in tion in 3:30 PM source source source source data data data data CHART NA No No No No Apr 29 NUMBER informa informa informa informa 2012 tion in tion in tion in tion in 3:30 PM source source source source data data data data Trepone NON-PHYLLIS No No No METHOD Apr [address] informa informa informa OF 2012 pallidu tion in tion in tion in ANALYSI 3:30 PM m IgG source source source S: Ab data data data EIANORM [Presen AL ce] in RANGE: Serum NON-PHYLLIS by CTIVE\. Immunoa br\This ssay report contain s patient informa tion that [facility] with [facility] Ins[facility] ce Portabi lity and Account ability Act. Treponema pallidum IgG Ab [Presence] in Serum by Immunoassay Observa Value Referen Units Interpr Notes Date tion ce etation Range COLLECT NA No No No No Apr 29 OR informa informa informa informa 2012 tion in tion in tion in tion in 3:30 PM source source source source data data data data ETHNICI WHITE No No No No Apr 29 TY informa informa informa informa 2012 tion in tion in tion in tion in 3:30 PM source source source source data data data data PURPOSE DIAGNOS No No No No Apr 29 OF TIC informa informa informa informa 2012 EXAM tion in tion in tion in tion in 3:30 PM source source source source data data data data SPECIME BLOOD No No No No Apr 29 N informa informa informa informa 2012 SOURCE tion in tion in tion in tion in 3:30 PM source source source source data data data data CHART NA No No No No Apr 29 NUMBER informa informa informa informa 2012 tion in tion in tion in tion in 3:30 PM source source source source data data data data Trepone Pending No No No \.br\Apr 29 ma informa informa informa is 2012 pallidu tion in tion in tion in report 3:30 PM m IgG source source source contain Ab data data data s [Presen patient ce] in Serum informa by tion Immunoa that ssay must be protect ed in [place] nce with the Health Insuran ce Opal wetzel and Account ability Act. CHLAMYDIA AND GONORRHEA TESTING Observa Value Referen Units Interpr Notes Date tion ce etation Range COLLECT NA No No No No Apr 29 OR informa informa informa informa 2012 tion in tion in tion in tion in 3:30 PM source source source source data data data data ETHNICI WHITE, No No No No Apr 29 TY NON-HIS informa informa informa informa 2012 PANIC tion in tion in tion in tion in 3:30 PM source source source source data data data data KIT 10-27-12 No No No No Apr 29 EXPIRAT informa informa informa informa 2012 ION tion in tion in tion in tion in 3:30 PM DATE source source source source data data data data SYMPTOM NO No No No No Apr 29 S informa informa informa informa 2012 tion in tion in tion in tion in 3:30 PM source source source source data data data data REASON VOLUNTE No No No No Apr 29 FOR ER/MEDI informa informa informa informa 2012 REQUEST OLLIE tion in tion in tion in tion in 3:30 PM PROBLEM source source source source data data data data SPECIME FEMALE No No No No Apr 29 N ENDOCER informa informa informa informa 2012 SOURCE VICAL tion in tion in tion in tion in 3:30 PM source source source source data data data data PREGNAN NO No No No No Apr 29 T informa informa informa informa 2012 tion in tion in tion in tion in 3:30 PM source source source source data data data data CHART NA No No No No Apr 29 NUMBER informa informa informa informa 2012 tion in tion in tion in tion in 3:30 PM source source source source data data data data Chlamyd Pending No No No No Apr 29 ia informa informa informa informa 2012 trachom tion in tion in tion in tion in 3:30 PM atis source source source source rRNA data data data data [Presen ce] in Unspeci fied specime n by Probe & target amplifi cation method Neisser Pending No No No \.br\Th Apr 29 ia informa informa informa is 2012 gonorrh tion in tion in tion in report 3:30 PM oeae source source source contain rRNA data data data s [Presen patient ce] in Unspeci informa fied tion specime that n by must be Probe & target protect ed in amplifi accorda cation nce method with the Health Insuran ce Portabi lity and Account ability Act. CHLAMYDIA AND GONORRHEA TESTING Observa Value Referen Units Interpr Notes Date tion ce etation Range COLLECT NA No No No No Sep 3 OR informa informa informa informa 2012 tion in tion in tion in tion in 2:58 PM source source source source data data data data ETHNICI WHITE, No No No No Sep 3 TY NON-HIS informa informa informa informa 2012 PANIC tion in tion in tion in tion in 2:58 PM source source source source data data data data KIT 7-31-12 No No No No Sep 3 EXPIRAT informa informa informa informa 2012 ION tion in tion in tion in tion in 2:58 PM DATE source source source source data data data data SYMPTOM NO No No No No Sep 3 S informa informa informa informa 2012 tion in tion in tion in tion in 2:58 PM source source source source data data data data REASON REVISIT No No No No Sep 3 FOR /ANNUAL informa informa informa informa 2012 REQUEST FAMILY tion in tion in tion in tion in 2:58 PM source source source source PLANNIN data data data data G VISIT SPECIME FEMALE No No No No Sep 3 N ENDOCER informa informa informa informa 2012 SOURCE VICAL tion in tion in tion in tion in 2:58 PM source source source source data data data data PREGNAN NO No No No No Sep 3 T informa informa informa informa 2012 tion in tion in tion in tion in 2:58 PM source source source source data data data data CHART NA No No No No Sep 3 NUMBER informa informa informa informa 2012 tion in tion in tion in tion in 2:58 PM source source source source data data data data Chlamyd NEGATIV No No No NEGATIV Sep 3 ia E informa informa informa E 2012 trachom tion in tion in tion in RESULT= 2:58 PM atis source source source WITHIN rRNA data data data NORMAL [Presen ce] in LIMITSP Unspeci OSITIVE fied specime RESULT= n by Probe & ABNORMA target LEQUIVO OLLIE amplifi RESULT= cation method INDETER MINATEU NSATISF ACTORY RESULT= INVALID Neisser NEGATIV No No No NEGATIV Apr ia E informa informa informa E 2012 gonorrh tion in tion in tion in RESULT= 2:58 PM oeae source source source WITHIN rRNA data data data NORMAL [Presen ce] in LIMITSP Unspeci OSITIVE fied specime RESULT= n by Probe & ABNORMA target LEQUIVO OLLIE amplifi RESULT= cation method INDETER MINATEU NSATISF ACTORY RESULT= INVALID EFFECTI VE NOVEMBE R 2009: THE APTIMA COMBO 2 NUCLEIC ACIDAMP LIFICAT ION ASSAY IS NOT INTENDE D FOR THE EVALUAT ION OFSUSPE CTED SEXUAL ABUSE OR FOR OTHER MEDICO- LEGAL INDICAT IONS.FA LSE POSITIV E RESULTS ARE POSSIBL E.\.br\ This report contain s patient informa tion that must be protect ed in accorda nce with the Health Insuran ce Portabi lity and Account ability Act. CHLAMYDIA AND GONORRHEA TESTING Observa Value Referen Units Interpr Notes Date tion ce etation Range COLLECT NA No No No No Sep 30 OR informa informa informa informa 2012 tion in tion in tion in tion in 2:58 PM source source source source data data data data ETHNICI WHITE, No No No No Sep 30 TY NON-HIS informa informa informa informa 2012 PANIC tion in tion in tion in tion in 2:58 PM source source source source data data data data KIT 7-31-12 No No No No Sep 30 EXPIRAT informa informa informa informa 2012 ION tion in tion in tion in tion in 2:58 PM DATE source source source source data data data data SYMPTOM NO No No No No Sep 30 S informa informa informa informa 2012 tion in tion in tion in tion in 2:58 PM source source source source data data data data REASON REVISIT No No No No Sep 30 FOR /ANNUAL informa informa informa informa 2012 REQUEST FAMILY tion in tion in tion in tion in 2:58 PM source source source source PLANNIN data data data data G VISIT SPECIME FEMALE No No No No Apr 3 N ENDOCER informa informa informa informa 2012 SOURCE VICAL tion in tion in tion in tion in 2:58 PM source source source source data data data data PREGNAN NO No No No No Sep 3 T informa informa informa informa 2012 tion in tion in tion in tion in 2:58 PM source source source source data data data data CHART NA No No No No Sep 3 NUMBER informa informa informa informa 2012 tion in tion in tion in tion in 2:58 PM source source source source data data data data Chlamyd Pending No No No No Sep 3 ia informa informa informa informa 2012 trachom tion in tion in tion in tion in 2:58 PM atis source source source source rRNA data data data data [Presen ce] in Unspeci fied specime n by Probe & target amplifi cation method Neisser Pending No No No \.br\Sep 30 ia informa informa informa is 2012 gonorrh tion in tion in tion in report 2:58 PM oeae source source source contain rRNA data data data s [Presen patient ce] in Unspeci informa fied tion specime that n by must be Probe & target protect ed in amplifi accorda cation nce method with the Health Insuran ce Portabi lity and Account ability Act.
--- OUTSIDE RECORDS SUMMARY | 2017-05-12 15:49 | External Medical Summary Rpt ---
[...] MAY HAVE ADVERSE PSYCHO- SOCIAL IMPACT, [facility] NG.\.br \This report contain [...] tion that must be protect ed in [facility] with the Health Insuran ce Portabi [...] that [place] [facility] [place] [place] Opal [...]
[2017-05-12 16:01] VITALS: BP 116/62
--- NOTE | 2017-05-12 16:14 | Urgent Treatment Center Report ---
History of Present Issue Date/Time Seen by Provider 05/12/17 6707 Visit Reason Pt arrived:Walked Presenting Problem:PT C/O SINUS PRESSURE AND DRAINAGE Location if Accident: Onset of symptoms date/time:/ or onset unknown for:MEDICAL HX UNKNOWN Have you (or family members/close friends) recently traveled outside the [place]? N If Yes, where/when: Have you had exposure to infectious disease within the past month? TB? Other? Specify: Mother state that she has been having sinus pain and pressure now for several days that has continued to get worse State that she is having yellowish green drainage from her nose. State that she is feeling tender under her eyes and her drainage has continued to get thicker State that today she has had a sinus headache on and off so she came in to get some antibiotics to get her feeling better ALLERGIES Coded Allergies: Penicillins (02/05/16) SHELLFISH (FOOD) (I-HIVES 02/05/16) Sulfa (Sulfonamide Antibiotics) (02/05/16) aspirin (02/05/16) iodine (12/19/16) labetalol (02/05/16) triamcinolone (02/05/16) Home Medications Active Scripts NITROFURANTOIN MONOHYD/M-CRYST (Macrobid 100 MG Capsule) 100 MG PO BID #14 CAP Prov: 12/09/16 Azithromycin (Zithromycin (Z-DAYNA) 250MG Tab) 250 MG PO DAILY #6 TAB Prov: 03/18/17 D-METHORPHAN HB/P-EPD HCL/BPM (Bromfed Dm Cough Syrup) 10 ML PO Q4HP PRN cough #120 SYR Prov: 03/18/17 Famotidine (Pepcid) 40 MG PO DAILY #20 TAB Prov: 08/09/16 Lisinopril (Zestril) 10 MG NG DAILY #30 TAB Prov: 11/29/15 Fluticasone Propionate (Flonase [address]) 2 SPRAY NA DAILY #1 BOT Prov: 09/10/16 Reported Medications Hydroxyzine Pamoate 25 MG PO QHS #90 NORGESTIMATE-ETHINYL ESTRADIOL (Sprintec 28 Day Tablet) 1 TAB PO QHS Gabapentin (Gabapentin 100MG) 100 MG PO QHS #30 Bisoprolol Fumarate 10 MG PO QHS #30 Sertraline Hcl (Zoloft 50MG) 100 MG PO DAILY Trazodone Hcl (Trazodone HCl) 300 MG PO NIGHTLY #8 BUPROPION HCL SR (Wellbutrin SR 100MG) 100 MG PO BID History Medical History General CAD? No Angina: No PA: No Hypertension? Yes Hyperlipidemia? No CHF? No DVT? No PE? No COPD? No Asthma? Yes Anemia? No GERD? No Gastric ulcers? No GI Bleed? No Hernia? No Thyroid Problems? No Hypothyroidism? No CVA? No Seizures? No Diabetes? No Insulin Dependent: No Insulin Pump: No Home FSBS? No Renal Insuffiency? No UTI? Yes Stones? Yes BPH? No GB Disease: No Nephritic Syndrome? No Asplenia? No Hepatitis? No Sickle Cell Disease? No Arthritis? Yes Migraines? No Cataracts? No Glaucoma? No MRSA? No HIV? No TB? No Anxiety? Yes Depression? Yes Cancer? No More? Yes Additional hx: HEART MURMUR Immunization HX DT/Tetanus 5-10 YRS Flu Refused Pneumonia Received In Past Surgical Hx Previous Surgery?Y GALLBLADDER HEART CATH Family History Family HX Diabetes Yes Hypertension Yes Hyperlipidemia Yes Cancer Yes Social History Smoking Hx Smoker: Never Smoker Tobacco: No Alcohol Alcohol: No Review of Systems All Other Systems Reviewed and Negative ENT nose congestion. Physical Exam Vital Signs Vital Signs Date Time Temp Pulse Resp B/P Pulse O2 O2 Flow FiO2 Ox Delivery Rate 05/12 1601 98.4 62 20 116/62 99 General Appearance normal appearance, WD/WN, no apparent distress Ear, Nose, Throat sinus pain/drainage, nasal congestion, Reports yellowish/green drainage with tenderness noted maxillary sinuses Respiratory Status Yes: trachea midline, chest symmetrical, non tender chest. No: respiratory distress. Cardiovascular normal exam, regular rate/rhythm, no peripheral edema Neurologic alert, normal exam, oriented x 3 Medical Decision Making LABS/Meds/Orders Pt receiving controlled substance in ED? No Results/Orders Orders Procedure Date/time Status [facility] STREP SCREEN 05/12 1551 Active Progress [facility] Progress Notes Comment Patient state that she is allergic to Penicillin however is able to take Cephosporins without reaction or difficulties Departure Departure Time of Disposition 1616 Disposition DC Home or Self Care(routine) Clinical Impression Primary Impression: Sinusitis Qualifiers: Sinusitis location: unspecified location Chronicity: unspecified Qualified Code: J32.9 - Chronic sinusitis, unspecified Condition STABLE Patient Instructions DI for Sinusitis, Sinusitis Additional Instructions Start antibiotic. Sinus infections may take 2-3 days to notice much improvement so be sure to use conservative measures as discussed for symptoms Ok to continue Sudafed Flonase 2 spray in each nostril daily to help with nasal congestion, sinus an ear pressure/inflammation Lots of Fluids Sleep elevated Humidifer/vaporizer Discharge Counseling Counseled pt/family regarding diagnosis, test results, medications/RX, home care, follow up needs Prescriptions Current Visit Scripts CEFDINIR (Cefdinir) 300 MG PO BID #20 CAP D-METHORPHAN HB/P-EPD HCL/BPM (Bromfed Dm Cough Syrup) 10 ML PO Q4HP PRN cough #120 SYR at 2132
--- NOTE | 2017-05-12 16:14 | Urgent Treatment Center Report ---
History of Present Issue Date/Time Seen by Provider 05/12/17 4927 Visit Reason Pt arrived:Walked Presenting Problem:PT C/O SINUS PRESSURE AND DRAINAGE Location if Accident: Onset of symptoms date/time:/ or onset unknown for:MEDICAL HX UNKNOWN Have you (or family members/close friends) recently traveled outside the [place]? N If Yes, where/when: Have you had exposure to infectious disease within the past month? TB? Other? Specify: Mother state that she has been having sinus pain and pressure now for several days that has continued to get worse State that she is having yellowish green drainage from her nose. State that she is feeling tender under her eyes and her drainage has continued to get thicker State that today she has had a sinus headache on and off so she came in to get some antibiotics to get her feeling better ALLERGIES Coded Allergies: Penicillins (02/05/16) SHELLFISH (FOOD) (I-HIVES 02/05/16) Sulfa (Sulfonamide Antibiotics) (02/05/16) aspirin (02/05/16) iodine (12/19/16) labetalol (02/05/16) triamcinolone (02/05/16) Home Medications Active Scripts NITROFURANTOIN MONOHYD/M-CRYST (Macrobid 100 MG Capsule) 100 MG PO BID #14 CAP Prov: 12/09/16 Azithromycin (Zithromycin (Z-DAYNA) 250MG Tab) 250 MG PO DAILY #6 TAB Prov: 03/18/17 D-METHORPHAN HB/P-EPD HCL/BPM (Bromfed Dm Cough Syrup) 10 ML PO Q4HP PRN cough #120 SYR Prov: 03/18/17 Famotidine (Pepcid) 40 MG PO DAILY #20 TAB Prov: 08/09/16 Lisinopril (Zestril) 10 MG NG DAILY #30 TAB Prov: 11/29/15 Fluticasone Propionate (Flonase 50 Mcg Nasal [place]) 2 SPRAY NA DAILY #1 BOT Prov: 09/10/16 Reported Medications Hydroxyzine Pamoate 25 MG PO QHS #90 NORGESTIMATE-ETHINYL ESTRADIOL (Sprintec 28 Day Tablet) 1 TAB PO QHS Gabapentin (Gabapentin 100MG) 100 MG PO QHS #30 Bisoprolol Fumarate 10 MG PO QHS #30 Sertraline Hcl (Zoloft 50MG) 100 MG PO DAILY Trazodone Hcl (Trazodone HCl) 300 MG PO NIGHTLY #8 BUPROPION HCL SR (Wellbutrin SR 100MG) 100 MG PO BID History Medical History General CAD? No Angina: No NE: No Hypertension? Yes Hyperlipidemia? No CHF? No DVT? No PE? No COPD? No Asthma? Yes Anemia? No GERD? No Gastric ulcers? No GI Bleed? No Hernia? No Thyroid Problems? No Hypothyroidism? No CVA? No Seizures? No Diabetes? No Insulin Dependent: No Insulin Pump: No Home FSBS? No Renal Insuffiency? No UTI? Yes Stones? Yes BPH? No GB Disease: No Nephritic Syndrome? No Asplenia? No Hepatitis? No Sickle Cell Disease? No Arthritis? Yes Migraines? No Cataracts? No Glaucoma? No MRSA? No HIV? No TB? No Anxiety? Yes Depression? Yes Cancer? No More? Yes Additional hx: HEART MURMUR Immunization HX DT/Tetanus 5-10 YRS Flu Refused Pneumonia Received In Past Surgical Hx Previous Surgery?Y GALLBLADDER HEART CATH Family History Family HX Diabetes Yes Hypertension Yes Hyperlipidemia Yes Cancer Yes Social History Smoking Hx Smoker: Never Smoker Tobacco: No Alcohol Alcohol: No Review of Systems All Other Systems Reviewed and Negative ENT nose congestion. Physical Exam Vital Signs Vital Signs Date Time Temp Pulse Resp B/P Pulse O2 O2 Flow FiO2 Ox Delivery Rate 05/12 1601 98.4 62 20 116/62 99 General Appearance normal appearance, WD/WN, no apparent distress Ear, Nose, Throat sinus pain/drainage, nasal congestion, Reports yellowish/green drainage with tenderness noted maxillary sinuses Respiratory Status Yes: trachea midline, chest symmetrical, non tender chest. No: respiratory distress. Cardiovascular normal exam, regular rate/rhythm, no peripheral edema Neurologic alert, normal exam, oriented x 3 Medical Decision Making LABS/Meds/Orders Pt receiving controlled substance in ED? No Results/Orders Orders Procedure Date/time Status [facility] STREP SCREEN 05/12 1551 Active Progress [facility] Progress Notes Comment Patient state that she is allergic to Penicillin however is able to take Cephosporins without reaction or difficulties Departure Departure Time of Disposition 1616 Disposition DC Home or Self Care(routine) Clinical Impression Primary Impression: Sinusitis Qualifiers: Sinusitis location: unspecified location Chronicity: unspecified Qualified Code: J32.9 - Chronic sinusitis, unspecified Condition STABLE Patient Instructions DI for Sinusitis, Sinusitis Additional Instructions Start antibiotic. Sinus infections may take 2-3 days to notice much improvement so be sure to use conservative measures as discussed for symptoms Ok to continue Sudafed Flonase 2 spray in each nostril daily to help with nasal congestion, sinus an ear pressure/inflammation Lots of Fluids Sleep elevated Humidifer/vaporizer Discharge Counseling Counseled pt/family regarding diagnosis, test results, medications/RX, home care, follow up needs Prescriptions Current Visit Scripts CEFDINIR (Cefdinir) 300 MG PO BID #20 CAP D-METHORPHAN HB/P-EPD HCL/BPM (Bromfed Dm Cough Syrup) 10 ML PO Q4HP PRN cough #120 SYR at 0235
== END ==
LOC: UTC 15:37
DX: J32.9 Chronic sinusitis, unspecified (principal); I10 Essential (primary) hypertension; J45.909 Unspecified asthma, uncomplicated; Z88.8 Allergy status to other drugs, medicaments and biological substances; Z91.041 Radiographic dye allergy status; Z88.0 Allergy status to penicillin; Z91.013 Allergy to seafood; Z79.51 Long term (current) use of inhaled steroids; Z79.899 Other long term (current) drug therapy

== ENCOUNTER 2017-06-02 08:18 | Emergency (ER) | payer MEDICAID ==
[~2017-06-02] VITALS: Ht 172.7 cm; Wt 90.7 kg
[2017-06-02] MEDS ORDERED: MONO-LINYAH1 TAB PO (08:52)
--- OUTSIDE RECORDS SUMMARY | 2017-06-02 08:56 | External Medical Summary Rpt | CCD ---
Author Author , ASIM DAILEY Address Unknown Phone [email or web address] Care Team Providers Care Unit Assembler Name Role Phone Siddhartha Luz III, MD, [...] ALLERGY TO 11-07-2016 [facility] 401[facility]9 [phone] [facility] [phone] 01-13-2013 [place] ASTHMA, [facility] UNSPECIFIED Hospital [phone] 01-13-2013 [place] NAUSEA WITH [facility] VOMITING Hospital [phone] 01-13-2013 [place] DIARRHEA [facility] [phone] 01-13-2013 [place] ABDOMINAL [facility] PAIN, Hospital UNSPECIFIED SITE V58.69 V58.69 OTH 01-13-2013 [facility] ENT USE Hospital I88.0 NONSPECIFIC MESENTERIC [...] ti 4 ve MG /2 ML AL AZ 00 07 0 No OM 64 -1 [...] Order Detail nces retati t Range on Screening group A Streptococcus antigen (2017 15:51) Screeni NOT NOTDETE complet ng 0[address] ed group A 15:51 D NOT DETECTE Strepto D L coccus antigen Comment: LOT # @[id number] EXP DATE @2019-03-02 Streptococcus pyogenes Ag [Presence] in Unspecified specimen (2017 15:51) Strepto NOT NOTDETE complet coccus 0[address] ed pyogene 15:51 D s Ag [Presen ce] in Unspeci fied specime n Urinalysis macro (dipstick) panel in Urine (12-09-2016 [...] 013 mg/dL ed Bld-mCn 12:50 c BUN 01-13- 12 7-18 complet Bld-mCn 013 mg/dL ed c 12:50 Creat 01-13- 1.0 0.6-1.0 complet SerPl-m 013 mg/dL ed Cnc 12:50 ESTIMAT 01-13-2 128 50-200 complet ED 013 ML/MIN ed CREATIN 12:50 INE CLEARAN CE GFR 66 59- complet (ESTIMA 013 ML/MIN ed BERNARDO) 12:50 Sodium 01-13- 138 136-145 complet SerPl-s 013 mmoL/L ed Cnc 12:50 Potassi 3.7 3.5-5.1 complet um 013 mmoL/L ed SerPl-s 12:50 Cnc Chlorid 101 98-107 complet e 013 mmoL/L ed SerPl-s 12:50 Cnc CO2 27 21.0-32 complet SerPl-s 013 mmoL/L .0 ed Cnc 12:50 Calcium 01-13- 9.5 8.5-10. complet 013 mg/dL 1 ed SerPl-m 12:50 Cnc Prot 8.0 6.4-8.2 complet SerPl-m 013 gm/dL ed Cnc 12:50 Albumin 01-13- 4.0 3.4-5.0 complet 013 gm/dL ed SerPl-m 12:50 Cnc Globuli 01-13-2 4.0 1.3-3.2 complet n 013 gm/dL ed Ser-mCn 12:50 c Albumin 01-13-2 1.0 UNK 1.1-1.8 complet /Glob 013 ed SerPl-m 12:50 Rto Bilirub 01-13-2 0.4 0.2-1.0 complet 013 mg/dL ed SerPl-m 12:50 Cnc AST 01-13-2 33 U/L 15-37 complet SerPl-c 013 ed Cnc 12:50 ALT 01-13-2 83 U/L 30-65 complet SerPl-c 013 ed Cnc 12:50 ALP 01-13-2 90 U/L 50-136 complet SerPl-c 013 ed Cnc 12:50 CBC with AUTO DIFF (01-13-2013 12:50) WBC # -17-2 9.0 4.8-10. complet Bld 013 K/MM3 8 ed Auto 12:50 RBC # 17-2 5.37 4.2-5.4 complet Bld 013 M/mm3 ed [...] in Serum by Immunoassay (04-29-2012 15:30) Trepone 04-29- NON-PHYLLIS complet ma 012 CTIVE ed pallidu 15:30 m IgG Ab [Presen ce] in Serum by Immunoa ssay Treponema pallidum IgG Ab [Presence] in Serum by Immunoassay (04-29-2012 15:30) COLLECT NA complet OR 012 ed 15:30 ETHNICI WHITE complet TY 012 ed 15:30 PURPOSE [...] TY 012 NON-HIS ed 15:30 PANIC KIT 10-27-13 complet EXPIRAT 012 ed ION 15:30 DATE [...] RAMSES Wild (ER) 3 12:52 3 16:01 [facility] Siddhartha Ridley Emergency RAMSES Alcantara MD (ER) 3 20:07 3 20:45 [facility] [place]
--- OUTSIDE RECORDS SUMMARY | 2017-06-02 08:56 | External Medical Summary Rpt | CCD ---
Author Author , ASIM DAILEY Address Unknown Phone [email or web address] Team Providers Care Investment Analyst Name Role Phone Siddhartha Luz III, MD, [...] ALLERGY TO 11-07-2016 [place] 401.9 401.9 [facility] [phone] 01-13-2013 [place] ASTHMA, [facility] UNSPECIFIED Hospital 787.01 [phone] 01-13-2013 [place] NAUSEA WITH [facility] VOMITING Hospital 787.91 [phone] 01-13-2013 [place] DIARRHEA [facility] 789.00 [phone] 01-13-2013 [place] ABDOMINAL [facility] PAIN, Hospital UNSPECIFIED SITE V58.69 V58.69 OTH 01-13-2013 [facility] ENT USE Hospital I88.0 NONSPECIFIC MESENTERIC [...] D L coccus antigen Comment: LOT # @[id number] EXP DATE @2019-03-02 Streptococcus pyogenes Ag [Presence] [...] RAMSES Wild (ER) 3 12:52 3 16:01 [facility] Siddhartha Ridley Emergency RAMSES Alcantara MD (ER) 3 20:07 3 20:45 [facility]
--- OUTSIDE RECORDS SUMMARY | 2017-06-02 08:56 | External Medical Summary Rpt | CCD ---
Author Author , ASIM DAILEY Address Unknown Phone [email or web address] Core Immunization Name Date Rout CVX Reac Dose [...]
--- OUTSIDE RECORDS SUMMARY | 2017-06-02 08:56 | External Medical Summary Rpt | CCD ---
Author Author , ASIM DAILEY Address Unknown Phone [email or web address] Immunization Name Date Rout CVX Reac Dose [...]
--- OUTSIDE RECORDS SUMMARY | 2017-06-02 08:56 | External Medical Summary Rpt | CCD ---
Demographics Preferred Language Guatemalan Marital Status Unknown Worship Affiliation Unknown Race Unknown Ethnic Group Unknown Author Author ASIM Address Unknown Phone [email or web address] Purpose Continuity of Care Document - through 2016
--- OUTSIDE RECORDS SUMMARY | 2017-06-02 08:56 | External Medical Summary Rpt | CCD ---
Demographics Preferred Language Latvian Marital Status Unknown Confucianism Affiliation Unknown Race Unknown Ethnic Group Unknown Author Author ASIM Address Unknown Phone [email or web address] Purpose Continuity of Care Document - through 2016
--- OUTSIDE RECORDS SUMMARY | 2017-06-02 08:57 | External Medical Summary Rpt ---
Author Author ASIM Gu, ASIM [employer] Organization [employer] Address Unknown Phone Unavailable Results Streptococcus pyogenes Ag [Presence] in Unspecified specimen Observa Value Referen Units Interpr Notes Date tion ce etation Range Strepto NOT NOTDETE No No LOT # May 12 coccus DETECTE CTED informa informa @[id number] pyogene D tion in tion in 2 EXP 3:51 PM s Ag source source DATE [Presen data data @2018- ce] in 03-02 Unspeci fied specime n Urinalysis macro (dipstick) panel in Urine Observa Value Referen Units Interpr Notes Date tion ce etation Range Appeara Cloudy CLEAR No No No Dec 09 nce of informa informa informa 2017 Urine tion in tion in tion in 10:57 source source source AM data data data Bilirub NEGATIV NEG No No No Dec 09 in E informa informa informa 2016 [Presen tion [...] of 5.0 - 8.5 No Normal No Dec 09 Urine informati informati 2017 on in on [...] No Dec 09 E informa informa informa 2017 [Presen tion [...] source source data data data data KIT -30-13 No No No No Apr 29 EXPIRAT [...] MAY HAVE ADVERSE PSYCHO- SOCIAL IMPACT, [facility] RET[facility] NG.\.br \This report contain [...] data data Trepone Pending No No No \.br\Th Apr 29 ma informa informa informa is 2012 pallidu tion in tion in tion in report 3:30 PM m IgG source source source contain Ab data data data s [Presen patient ce] in Serum informa by tion Immunoa that ssay must be protect ed in accorda nce with the Health Insuran ce [facility] and Account ability Act. CHLAMYDIA AND GONORRHEA [...] source source data data data data KIT -- No No No No Apr 29 EXPIRAT [...] SPECIME FEMALE No No No No Sep 30 N ENDOCER informa informa informa informa 2012 SOURCE VICAL tion in tion in tion in tion in 2:58 PM source source source source data data data data PREGNAN NO No No No No Sep 30 T informa informa informa informa 2012 tion [...] Neisser NEGATIV No No No NEGATIV Apr 3 ia E informa informa informa E [...] method Neisser Pending No No No \.br\Th Sep 30 ia informa informa informa is 2012 [...]
--- OUTSIDE RECORDS SUMMARY | 2017-06-02 08:57 | External Medical Summary Rpt ---
Author Author ASIM Gu, [employer]IM [employer] Organization [employer] Address Unknown Phone Unavailable Results Streptococcus pyogenes Ag [Presence] in Unspecified specimen Observa Value Referen Units Interpr Notes Date tion ce etation Range Strepto NOT NOTDETE No No LOT # May 12 coccus DETECTE CTED informa informa @[id number] pyogene D tion in tion in 2 [...] MAY HAVE ADVERSE PSYCHO- SOCIAL IMPACT, [facility] MM[facility]DS RETESTI NG.\.br \This report contain s [...] accorda nce with the Health Insuran ce [facility] and Account ability Act. CHLAMYDIA AND GONORRHEA [...]
[2017-06-02 09:08] LABS: URINE BILIRUBIN - DIPSTICK NEGATIVE (NEG); URINE BLOOD TRACE-INTACT (NEG)
--- NOTE | 2017-06-02 09:16 | Emergency Room Report ---
History of Present Illness Time Seen by MD Gu52 Presenting Problem in Triage Pt arrived:Walked Presenting Problem:PT REPORTS UPPER ABD PAIN THAT GOES ACROSS ABD X3 DAYS, REPORTS "DRY HEAVING" LASTNIGHT. 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 N Clinical Suspician of Infection? N Mental Status: 1 - Regular (Normal Baseline) Sepsis Risk:Low Sepsis Risk Have you (or family members/close friends) recently traveled outside the [place]? N If Yes, where/when: Have you had exposure to infectious disease within the past month? N TB? Other? Specify: Source patient, RN notes reviewed, old records Exam Limitations no limitations Comment upper abd pain over the last few days with no fever or vomiting and no diarrhea Cardiac Chest Pain Chest pain indicative of cardiac No Timing/Duration this evening Severity moderate ALLERGIES Coded Allergies: Penicillins (02/05/16) SHELLFISH (FOOD) (I-HIVES 02/05/16) Sulfa (Sulfonamide Antibiotics) (02/05/16) aspirin (02/05/16) iodine (12/19/16) labetalol (02/05/16) triamcinolone (02/05/16) Home Medications Active Scripts Famotidine (Pepcid) 40 MG PO DAILY #20 TAB Prov: 08/09/16 Lisinopril (Zestril) 10 MG NG DAILY #30 TAB Prov: 11/29/15 Fluticasone Propionate (Flonase 50 Mcg Nasal [place]) 2 SPRAY NA DAILY #1 BOT Prov: 09/10/16 Reported Medications Hydroxyzine Pamoate 25 MG PO QHS #90 NORGESTIMATE-ETHINYL ESTRADIOL (Sprintec 28 Day Tablet) 1 TAB PO QHS Gabapentin (Gabapentin 100MG) 100 MG PO QHS #30 Bisoprolol Fumarate 10 MG PO QHS #30 Sertraline Hcl (Zoloft 50MG) 100 MG PO DAILY Trazodone Hcl (Trazodone HCl) 300 MG PO NIGHTLY #8 BUPROPION HCL SR (Wellbutrin SR 100MG) 100 MG PO BID History Medical History General CAD? No Angina: No SD: No Hypertension? Yes Hyperlipidemia? No CHF? No DVT? No PE? No COPD? No Asthma? Yes Anemia? No GERD? No Gastric ulcers? No GI Bleed? No Hernia? No Thyroid Problems? No Hypothyroidism? No CVA? No Seizures? No Diabetes? No Insulin Dependent: No Insulin Pump: No Home FSBS? No Renal Insuffiency? No End Stage Renal Disease? No UTI? Yes Stones? Yes BPH? No GB Disease: No Nephritic Syndrome? No Asplenia? No Hepatitis? No Sickle Cell Disease? No Arthritis? Yes Migraines? No Cataracts? No Glaucoma? No MRSA? No HIV? No TB? No Anxiety? Yes Depression? Yes Cancer? No More? 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 Respiratory denies cough, denies shortness of breath, denies wheezing Cardiovascular denies chest pain, denies palpitations, denies syncope Gastrointestinal see HPI, abdominal pain, denies diarrhea, denies vomiting Genitourinary denies: dysuria, frequency, hesitancy, hematuria. Musculoskeletal denies back pain, denies joint pain, denies joint swelling, denies neck pain Skin denies rash Psychiatric/Neurological denies headache, denies seizure Physical Exam Vital Signs Vital Signs Date Time Temp Pulse Resp B/P Pulse O2 O2 Flow FiO2 Ox Delivery Rate 06/02 1233 50 18 140/82 99 06/02 0959 58 18 124/68 95 06/02 0848 97.9 52 18 145/79 95 - WBC >12,000 or <4,000 or 10% bands? 2 or more SIRS Criteria Met? B/P:140/82 MAP:101 Creatinine >2.0? UA output<0.5ml/kg/hr for 2 hrs? Platelet count >100,000? Lactate >2.0mmol/1? INR >1.2 or PTT > than 60 sec? Evidence of Organ Dysfunction? Provider documented clinical suspician of infection? N Sepsis Criteria Count: 0 Sepsis Risk: Low Sepsis Risk General Appearance no apparent distress Eye Exam - bilateral eye PERRL, bilateral eye EOMI Ear, Nose, Throat normal ENT inspection Neck supple Respiratory Status No: respiratory distress. Lung Sounds bilateral: lungs clear. 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 No Results/Orders Laboratory Tests 06/02/17 0917: Sodium 139, Potassium 4.0, Chloride 101, Carbon Dioxide 29, BUN 10, Creatinine 1.1 H, Estimated Creat Clear 103, Estimated GFR (MDRD) 57 L, Glucose 102, Calcium 9.4, Total Bilirubin 0.5, AST 23, ALT 23, Alkaline Phosphatase 91, Total Protein 7.6, Albumin 3.7, Globulin 3.9 H, Albumin/Globulin Ratio 0.9 L, Amylase 37, Lipase 132, WBC 8.5, RBC 4.92, Hgb 13.9, Hct 40.4, MCV 82.2, RDW 12.0, Plt Count 349, MPV 6.6 L, Gran % 66.7, Gran # 5.7, Lymphocytes % 26.9, Monocytes % 3.0, Eosinophils % 2.7, Basophils % 0.6, Lymphocytes # 2.3, Monocytes # 0.3, Eosinophils # 0.2, Basophils # 0.1, PUBS MCHC 34.3, MCH 28.2 06/02/17 0855: Urine Color YELLOW, Urine Appearance CLEAR, Urine pH 6.0, Ur Specific [place] 1.010, Urine Protein NEGATIVE, Urine Ketones NEGATIVE, Urine Blood TRACE-INTACT, Urine Nitrate NEGATIVE, Urine Bilirubin NEGATIVE, Urine Urobilinogen 0.2, Ur Leukocyte Esterase 1+ H, Urine RBC OCC, Urine WBC 3-5, Ur Squamous Epith Cells 10-20, Urine Bacteria 2+, Urine Glucose NEGATIVE Orders Procedure Date/time Status DIET-NOTHING BY MOUTH 06/[address] SCAN REQ 06/02 1116 Complete LIPASE 06/02 0857 Complete CBC WITH AUTO DIFF 06/02 0857 Complete CHEM 12 PROFILE 06/02 0857 Complete AMYLASE 06/02 0857 Complete CULTURE, URINE 06/02 0855 Active URINALYSIS/COMPLETE 06/02 0854 Complete URINE 06/02 0854 Complete XRAY/CT/US XRAY/CT/US CT abdomen, pelvis CT interpretation by discussed w/radiologist Time results known: 1250 CT Results normal/NAD Departure Departure Time of Disposition 1250 Disposition DC Home or Self Care(routine) Clinical Impression Primary Impression: Abdominal pain Qualifiers: Abdominal location: upper abdomen, unspecified Qualified Code: R10.10 - Upper abdominal pain, unspecified Condition STABLE Referrals Quinton DERAS,Bert Moon (Family) Patient Instructions DI for Abdominal Pain-Adult Additional Instructions please see pcp for follow up Discharge Counseling Counseled pt/family regarding diagnosis, test results, medications/RX, follow up needs ED Critical Care Critical Care No at [id number]
[2017-06-02 09:33] LABS: HEMOGLOBIN 13.9 g/dL (12.2-16.2); LYMPH # 2.3 K/mm3 (0.7-4.5); LYMPH % 26.9 % (10-50.0)
--- NOTE | 2017-06-02 12:06 | RADIOLOGY REPORT PS360 ---
CT ABD PELVIS W/O CONTRAST CLINICAL INDICATION: Epigastric pain ABD PAIN,, NEG. UPT ORDERING PHYSICIAN: Natasha Alcantara MD PATIENT AGE: 32 years COMPARISON: 09/02/2016 TECHNIQUE: Axial images obtained with sagittal and coronal reformats. PROCEDURE: Oral Contrast: None IV Contrast: None . FINDINGS: The lung bases are clear. There is mild fatty infiltration of the liver. No definite liver lesion is evident on this unenhanced exam. There has been a prior cholecystectomy. No obvious biliary dilatation. The spleen, adrenal glands, pancreas has an unremarkable appearance. No renal calculi or hydronephrosis. No ureteral calculi. Unremarkable appendix. No evidence of diverticulitis, intestinal obstruction, or free air. No pelvic mass or focal inflammatory change. Urinary bladder has an unremarkable appearance. No acute bony anomalies. IMPRESSION: 1. No acute abdominal or pelvic findings. 2. Mild hepatic steatosis
[2017-06-02 12:57] VITALS: BP 122/76
[2017-06-20] MEDS ORDERED: MOTRIN 600MG.600 MG PO (15:04)
== END 2017-06-02 12:57 | disposition home or self-care (01) ==
LOC: ER 08:18
PROVIDERS: Emergency Medicine
DX: R10.10 Upper abdominal pain, unspecified (principal); Z88.0 Allergy status to penicillin; Z88.2 Allergy status to sulfonamides; I10 Essential (primary) hypertension; J45.909 Unspecified asthma, uncomplicated; F41.8 Other specified anxiety disorders